=== PATIENT | female | born 1980 | race Hispanic/Latino ===

== ENCOUNTER 2017-10-16 17:24 | Emergency (ER) | payer MEDICAID, OTHER ==
[2017-10-16 17:59] LABS: APPEARANCE,URINE Clear (CLEAR); BILIRUBIN,URINE Negative (NEGATIVE); COLOR,URINE Yellow (YELLOW); GLUCOSE, URINE (UA) Negative (NEGATIVE); KETONES,URINE Negative (NEGATIVE); LEUKOCYTE ESTERASE ,URINE Moderate (NEGATIVE); NITRATE,URINE Negative (NEGATIVE); OCCULT BLOOD,URINE Negative (NEGATIVE); PH,URINE 5.5 (5.0-8.0); PROTEIN,URINE Negative (NEGATIVE); UROBILINOGEN,URINE 0.2 mg/dL (0.2-1.0)
[2017-10-16 18:01] LABS: HCG,QUAL RESULT POSITIVE (NEGATIVE)
[2017-10-16 18:10] LABS: BACTERIA,URINE Rare /HPF (None Seen); RBC,URINE None Seen /HPF (0-1)
== END 2017-10-16 18:24 | disposition home or self-care (01) ==
LOC: EDH 17:24
DX: O23.41 Unspecified infection of urinary tract in pregnancy, first trimester (principal); J45.909 Unspecified asthma, uncomplicated; Z3A.01 Less than 8 weeks gestation of pregnancy
CPT/HCPCS: 81001; 81025

== ENCOUNTER 2018-01-28 21:31 | Emergency (ER) | payer MEDICAID | END 2018-01-28 22:38 | disposition home or self-care (01) | LOC: EDH 21:31 | DX: O9A.212 Injury, poisoning and certain other consequences of external causes complicating pregnancy, second trimester (principal); T63.2X1A Toxic effect of venom of scorpion, accidental (unintentional), initial encounter; J45.909 Unspecified asthma, uncomplicated; Z3A.19 19 weeks gestation of pregnancy; Y92.89 Other specified places as the place of occurrence of the external cause | CPT/HCPCS: 99281 ==

== ENCOUNTER 2022-06-29 06:29 | Emergency (ER) | payer MEDICAID, OTHER ==
[~2022-06-29] VITALS: Ht 167.6 cm; Wt 55.8 kg
[2022-06-29 06:46] VITALS: BP 129/66
[2022-06-29 06:51] LABS: BASOPHILS % (AUTO) 0.5 % (0.0-5.0); HEMATOCRIT 33.7 % (36-48); LYMPHOCYTES % (AUTO) 19.5 % (21.0-51.0); MEAN CORPUSCULAR HEMOGLOBIN 23.6 pg (27.0-33.0); MEAN CORPUSCULAR HGB CONC 30.9 g/dL (32.0-36.0); MEAN CORPUSCULAR VOLUME 76.4 fL (79-99); MONOCYTES % (AUTO) 10.5 % (3.0-13.0); NEUTROPHILS % (AUTO) 67.1 % (40.0-77.0); PLATELET COUNT (AUTO) 198 K/uL (130-400); RED BLOOD CELL COUNT(AUTO) 4.41 MIL/uL (4.00-5.50); RED CELL DISTRIBUTION WIDTH 14.9 % (11.0-15.5); WHITE BLOOD COUNT (AUTO) 7.8 K/uL (4.8-10.8)
[2022-06-29 06:53] LABS: APPEARANCE,URINE TURBID (CLEAR); BILIRUBIN,URINE NEGATIVE (NEGATIVE); COLOR,URINE YELLOW (YELLOW); GLUCOSE, URINE (UA) NEGATIVE (NEGATIVE); KETONES,URINE NEGATIVE (NEGATIVE); LEUKOCYTE ESTERASE ,URINE LARGE Leu/uL (NEGATIVE); NITRATE,URINE POSITIVE (NEGATIVE); OCCULT BLOOD,URINE SMALL (NEGATIVE); PH,URINE 6.5 (5.0-8.0); PROTEIN,URINE 30 mg/dL (NEGATIVE); UROBILINOGEN,URINE 0.2 mg/dL (0.2-1.0)
[2022-06-29] MEDS: KETOROLAC 15MG/ML VIAL (15MG/ML) IV ONE (06:55)
[2022-06-29 06:57] LABS: HCG,QUALITATIVE URINE NEGATIVE (NEGATIVE)
[2022-06-29 06:59] LABS: RBC,URINE 0-1 /HPF (0-1); WBC,URINE 51-100 /HPF (0-1)
[2022-06-29 07:00] LABS: BACTERIA,URINE Many /HPF (None Seen); SQUAMOUS EPITHELIAL CELL,UR Rare /HPF (0-2)
[2022-06-29 07:04] LABS: ALBUMIN 3.4 g/dL (3.5-5.0); CREATININE 0.9 mg/dL (0.5-1.5); POTASSIUM 3.8 mmol/L (3.5-5.1); TOTAL PROTEIN, SERUM 7.5 g/dL (6.0-8.3)
[2022-06-29] MEDS: CEFTRIAXONE 1G VIAL IVP ONE (07:18)
[2022-06-29] MEDS ORDERED: IBUP-1493 PO (07:28)
[2022-06-29] MEDS ORDERED: CEPH500B PO (07:28)
[2022-06-29] MEDS: CEFTRIAXONE 1G VIAL ONE (07:31)
== END 2022-06-29 07:38 | disposition home or self-care (01) ==
LOC: EDH 06:29
DX: N39.0 Urinary tract infection, site not specified (principal); Z79.1 Long term (current) use of non-steroidal anti-inflammatories (NSAID)
CPT/HCPCS: 99284; 96374; 96375; 80053; 83690; 85025; 87077; 87088; 87186; 81001; 81025; 36415; J0696; J1885

== ENCOUNTER 2023-05-14 20:51 | Emergency (ER) | payer MEDICAID ==
[~2023-05-14] VITALS: Ht 167.6 cm; Wt 76.2 kg
[~2023-05-14 20:51] MED LIST: ACET-66 PO; CEPH500B PO; GUAI-1170 PO; IBUP-1493 PO; IBUP-2070 PO; NITR100C4 PO; PHEN-847 PO
[2023-05-14 21:21] VITALS: BP 115/78; PULSE 75; RESP 18; O2SAT 98
[2023-05-14 21:46] LABS: SARS-CoV-2, RNA, NAAT POSITIVE SARS CoV-2 (NEGATIVE)
[2023-05-14 21:48] LABS: RAPID GROUP A STREP negative (NEGATIVE)
[2023-05-14 21:54] LABS: INFLUENZA TYPE A Negative For Type A (NEGATIVE); INFLUENZA TYPE B Negative For Type B (NEGATIVE)
== END 2023-05-14 22:55 | disposition home or self-care (01) ==
LOC: EDH 20:51
DX: O98.513 Other viral diseases complicating pregnancy, third trimester (principal); U07.1 COVID-19; J45.909 Unspecified asthma, uncomplicated; Z3A.35 35 weeks gestation of pregnancy; Z20.822 Contact with and (suspected) exposure to COVID-19
CPT/HCPCS: 99283; 87635; 87880; 87804 ×2; C9803

== ENCOUNTER 2023-08-03 19:12 | Emergency (ER) | payer MEDICAID ==
[~2023-08-03] VITALS: Ht 167.6 cm; Wt 69.4 kg
[2023-08-03 19:17] VITALS: BP 111/64; PULSE 105; RESP 20; O2SAT 97
[2023-08-03] MEDS ORDERED: IBUPROFEN 600 MG TABLET PO ONE (19:30)
[2023-08-03 19:38] LABS: RAPID GROUP A STREP negative (NEGATIVE)
[2023-08-03 19:42] LABS: SARS-CoV-2, RNA, NAAT NEGATIVE SARS CoV-2 (NEGATIVE)
[2023-08-03 19:48] LABS: INFLUENZA TYPE B Negative For Type B (NEGATIVE)
[2023-08-03 19:52] LABS: INFLUENZA TYPE A Positive For Type A (NEGATIVE)
[2023-08-03 19:56] VITALS: TEMP 100.2
[2023-08-03] MEDS ORDERED: OSELTAMIVIR PHOSPHATE 75 MG CAP PO ONE (20:00)
[2023-08-03] MEDS ORDERED: OSEL75 PO (20:09)
== END 2023-08-03 20:22 | disposition home or self-care (01) ==
LOC: EDH 19:12
DX: J10.1 Influenza due to other identified influenza virus with other respiratory manifestations (principal); J45.909 Unspecified asthma, uncomplicated; Z20.822 Contact with and (suspected) exposure to COVID-19
CPT/HCPCS: 99283; 87635; 87880; 87804 ×2; C9803

== ENCOUNTER 2023-12-21 08:44 | Emergency (ER) | payer MEDICAID ==
[~2023-12-21] VITALS: Ht 167.6 cm; Wt 67.1 kg
[~2023-12-21 08:44] MED LIST changes: +OSEL75 PO
[2023-12-21 10:23] LABS: BASOPHILS # (AUTO) 0.02 K/uL (0.00-0.20); BASOPHILS % (AUTO) 0.4 % (0.0-5.0); EOSINOPHILS # (AUTO) 0.36 K/uL (0.00-0.70); EOSINOPHILS % (AUTO) 7.2 % (0.0-8.0); HEMATOCRIT 41.1 % (36-48); IMMATURE GRANULOCYTE ABSOLUTE 0.02 K/uL (0-1); LYMPHOCYTES # (AUTO) 0.9 K/uL (1.0-4.8); LYMPHOCYTES % (AUTO) 18.1 % (21.0-51.0); MEAN CORPUSCULAR HEMOGLOBIN 28.2 pg (27.0-33.0); MEAN CORPUSCULAR HGB CONC 32.6 g/dL (32.0-36.0); MEAN CORPUSCULAR VOLUME 86.3 fL (79-99); MONOCYTES # (AUTO) 0.5 K/uL (0.1-1.0); MONOCYTES % (AUTO) 10.4 % (3.0-13.0); NEUTROPHILS # (AUTO) 3.2 K/uL (1.8-7.7); NEUTROPHILS % (AUTO) 63.5 % (40.0-77.0); PLATELET COUNT (AUTO) 195 K/uL (130-400); RED BLOOD CELL COUNT(AUTO) 4.76 MIL/uL (4.00-5.50); RED CELL DISTRIBUTION WIDTH 12.6 % (11.0-15.5)
[2023-12-21 10:29] LABS: CREATININE 0.8 mg/dL (0.5-1.0); POTASSIUM 4.2 mmol/L (3.5-5.1)
[2023-12-21] MEDS: ONDANSETRON ODT 4MG TAB SL ONE (10:35)
[2023-12-21] MEDS: IBUPROFEN 600 MG TABLET PO ONE (10:35)
[2023-12-21 10:43] LABS: COVID19 (SARS ANTIGEN RAPID) PRESUMPTIVE NEGATIVE (NEGATIVE)
[2023-12-21 10:46] LABS: INFLUENZA TYPE A Negative For Type A (NEGATIVE); INFLUENZA TYPE B Negative For Type B (NEGATIVE)
[2023-12-21 10:52] LABS: HCG,QUALITATIVE URINE NEGATIVE (NEGATIVE)
[2023-12-21 10:54] LABS: APPEARANCE,URINE CLOUDY (CLEAR); BILIRUBIN,URINE NEGATIVE (NEGATIVE); COLOR,URINE LIGHT-YELLOW (YELLOW); GLUCOSE, URINE (UA) NEGATIVE (NEGATIVE); KETONES,URINE NEGATIVE (NEGATIVE); LEUKOCYTE ESTERASE ,URINE 500 Leu/uL (NEGATIVE); NITRATE,URINE NEGATIVE (NEGATIVE); OCCULT BLOOD,URINE MODERATE (NEGATIVE); PH,URINE 5.5 (5.0-8.0); PROTEIN,URINE NEGATIVE (NEGATIVE); UROBILINOGEN,URINE 0.2 mg/dL (0.2-1.0)
[2023-12-21 11:18] LABS: ADD UA MICROSCOPIC YES
[2023-12-21] MEDS ORDERED: IBUP-2077 PO (11:24)
[2023-12-21] MEDS ORDERED: ONDA22I PO (11:24)
[2023-12-21 11:26] LABS: BACTERIA,URINE FEW /HPF (None Seen); MUCUS,URINE RARE LPF (None Seen); SQUAMOUS EPITHELIAL CELL,UR MANY /HPF (0-2); WBC,URINE 26-50 /HPF (0-1)
[2023-12-21 11:27] VITALS: BP 124/76; PULSE 78; RESP 18; O2SAT 97
== END 2023-12-21 11:31 | disposition home or self-care (01) ==
LOC: EDH 08:44
DX: A08.4 Viral intestinal infection, unspecified (principal); J45.909 Unspecified asthma, uncomplicated; Z20.822 Contact with and (suspected) exposure to COVID-19; Z79.899 Other long term (current) drug therapy
CPT/HCPCS: 36415; 80048; 81001; 81025; 85025; 87088; 87426; 87804